=== PATIENT | male | born 1965 | race Caucasian/White ===

== ENCOUNTER 2018-07-14 08:09 | Day surgery (SDC) | payer OTHER ==
[2018-07-09 09:22] LABS: BASOPHILS % (AUTO) 1.3 % (0.0-2.0); EOSINOPHILS % (AUTO) 4.8 % (0.0-3.0); HEMATOCRIT 39.3 % (42.0-52.0); HEMOGLOBIN 12.6 G/DL (14.2-18.0); LYMPHOCYTES % (AUTO) 25.5 % (20.0-45.0); MEAN CORPUSCULAR VOLUME 84 FL (80-99); MONOCYTES % (AUTO) 8.8 % (1.0-10.0); NEUTROPHILS % (AUTO) 59.6 % (45.0-75.0); PLATELET COUNT 314 K/UL (150-450); RED BLOOD COUNT 4.65 M/UL (4.70-6.10); WHITE BLOOD COUNT 8.9 K/UL (4.8-10.8)
[2018-07-09 09:33] LABS: APPEARANCE,URINE CLEAR; BILIRUBIN, URINE NEGATIVE (NEGATIVE); COLOR,URINE PALE YELLOW; GLUCOSE, URINE (UA) NEGATIVE (NEGATIVE); KETONES,URINE NEGATIVE (NEGATIVE); LEUKOCYTE ESTERASE ,URINE NEGATIVE (NEGATIVE); NITRITE,URINE NEGATIVE (NEGATIVE); PH,URINE 6 (4.5-8.0); PROTEIN,URINE NEGATIVE (NEGATIVE); UROBILINOGEN,URINE NORMAL MG/DL (0.0-1.0)
[2018-07-09 11:01] LABS: ALANINE AMINOTRANSFERASE 21 U/L (12-78); ALBUMIN 3.6 G/DL (3.4-5.0); ALKALINE PHOSPHATASE 88 U/L (46-116); ANION GAP 10 mmol/L (5-15); ASPARTATE AMINO TRANSFERASE 17 U/L (15-37); BILIRUBIN,TOTAL 0.2 MG/DL (0.2-1.0); BLOOD UREA NITROGEN 27 mg/dL (7-18); CALCIUM 8.8 MG/DL (8.5-10.1); CARBON DIOXIDE 29 MMOL/L (21-32); CHLORIDE 101 MMOL/L (98-107); CHOLESTEROL 175 MG/DL (< 200); CREATININE 1.4 MG/DL (0.55-1.30); HDL CHOLESTEROL 44 MG/DL (40-60); PHOSPHORUS 3.8 MG/DL (2.5-4.9); POTASSIUM 3.9 MMOL/L (3.5-5.1); SODIUM 140 MMOL/L (136-145); TRIGLYCERIDES 131 MG/DL (30-150)
--- NOTE | 2018-07-09 11:08 | Diagnostic Imaging Report ---
Indication: Cough Technique: 2 views of the chest Comparison: 12/01/2013 Findings: Lungs and pleural spaces are clear. Heart size is normal. There is mild thoracic scoliotic deformity. No significant interim change Impression: No acute process
[2018-07-14] VITALS (13 sets, daily range): BP systolic 94–119; BP diastolic 51–81
[~2018-07-14] VITALS: Ht 190.5 cm; Wt 81.6 kg
[~2018-07-14 08:09] MED LIST: ADVIL200 M2 ORAL; ALPHA LIPOIC AC50 M1 PO; ASPIRIN-LOW81 MG ORAL; CRESTOR10 M1 ORAL; FISH OIL CAP1000 MG ORAL; GLIPIZIDE5 MG ORAL; JANUMET XR 50-1 EAC1 ORAL; MULTIVITAMINS1 EAC2 ORAL; RELIEF FACTOR PO; [UNRECOGNIZED DRUG - OTHER] PO
[2018-07-14] MEDS ORDERED: Ropivacaine 5mg/ml Vial 30ml INJ ONE ×2 (09:37→10:21)
[2018-07-14] MEDS ORDERED: Dexamethasone 4mg/ml vial ONE ×2 (09:37→10:12)
[2018-07-14] MEDS ORDERED: EPINEPHrine 1mg/1ml Amp ONE (09:37)
[2018-07-14] MEDS ORDERED: Hydrogen Peroxide 473ml Bottle TOPIC ONE (09:38)
[2018-07-14] MEDS ORDERED: Acetic Acid 3% Solution 15ml TOPIC ONE (09:45)
[2018-07-14] MEDS ORDERED: Sodium Chloride 10ml vial INJ ONE ×2 (10:12→10:34)
[2018-07-14] MEDS ORDERED: Lidocaine 1% MPF 10mg/ml 5ml ONE (10:12)
[2018-07-14] MEDS ORDERED: Propofol 200mg/20ml IV ONE (10:12)
[2018-07-14] MEDS ORDERED: Lidocaine 1% Plain 30 ml INJ ONE (10:13)
[2018-07-14] MEDS ORDERED: cefOXitin 1gm Inj ONE (10:19)
--- NOTE | 2018-07-14 10:42 | Pre-Procedure Note/Attestation ---
Pre-Procedure Note/Attestation Complete Prior to Procedure Planned Procedure: not applicable Procedure Narrative: Transanal excision of rectal lesion Indications for Procedure Pre-Operative Diagnosis: Rectal lesion Attestation I attest that I discussed the nature of the procedure; its benefits; risks and complications; and alternatives (and the risks and benefits of such alternatives ), prior to the procedure, with the patient (or the patient's legal dairy supplies sales representative). I attest that, if there was a reasonable possibility of needing a blood transfusion, the patient (or the patient's legal dairy supplies sales representative) was given the [facility] standardized written summary, pursuant to the Michael Gary Blood Safety Act ([place] [facility] and Safety Code # 1645, as amended). I attest that I re-evaluated the patient just prior to the surgery and that there has been no change in the patient's H&P, except as documented below: Rafia Snowden MD Jul 14, 2018 10:42
[2018-07-14] MEDS ORDERED: DiphenhydrAMINE 50mg/ml Inj IVP PRN (10:45)
[2018-07-14] MEDS ORDERED: LR 1000ml 1,000 ML IVLG SCH (10:45)
[2018-07-14] MEDS ORDERED: Metoclopramide 10mg/2ml Inj IVP PRN (10:45)
[2018-07-14] MEDS ORDERED: HYDROcodone/Acetamin 7.5/325 tab ORAL PRN (10:45)
[2018-07-14] MEDS ORDERED: Acetaminophen (Non formulary) 100 ML IV ONE (10:45)
[2018-07-14] MEDS ORDERED: Labetalol 5mg/ml 20ml vial IV PRN (10:45)
[2018-07-14] MEDS ORDERED: Ketorolac 30mg Inj IV PRN ×2 (10:45)
[2018-07-14] MEDS ORDERED: fentaNYL 100 mcg/2 mL IV PRN (10:45)
[2018-07-14] MEDS ORDERED: oxyCODONE HCL/Acetaminophen 5/325mg ORAL PRN (10:45)
[2018-07-14] MEDS ORDERED: LORazepam Inj 2mg/ml 1ml IV PRN (10:45)
[2018-07-14] MEDS ORDERED: Norco 5mg/325mg tab ORAL PRN (10:45)
[2018-07-14] MEDS ORDERED: Atropine Inj 1mg/10ml Syr IV PRN (10:45)
[2018-07-14] MEDS ORDERED: Midazolam 2mg/2ml Inj IVP PRN (10:45)
[2018-07-14] MEDS ORDERED: Hydromorphone 0.5mg/0.5ml inj IVP PRN (10:45)
--- NOTE | 2018-07-14 10:48 | Anethesia Preoperative Eval ---
Anesthesia Pre-op PMH/ROS General Date of Evaluation: Jul 14, 2018 Time of Evaluation: 10:46 Anesthesiologist: Shanelle ASA Score: ASA 3 Mallampati Score Class I : Soft palate, uvula, fauces, pillars visible Class II: Soft palate, uvula, fauces visible Class III: Soft palate, base of uvula visible Class IV: Only hard plate visible Mallampati Classification: Class I Surgeon: Sp Diagnosis: Rectal Mass Surgical Procedure: Transanal Rectal Lesion Excision Anesthesia History: none Family History: no anesthesia problems Allergies: Coded Allergies: NO KNOWN ALLERGIES (Unverified Allergy, 12/05/13) Medications: see eMAR Past Medical History Cardiovascular: Reports: other - HL Endocrine: Reports: DM HEENT: Reports: cataract (L), cataract (R) PSxH Narrative: Cat Sx IOL Bilateral Anesthesia Pre-op Phys. Exam Physician Exam Last Vital Signs Date Time Temp Pulse Resp B/P (MAP) Pulse Ox O2 Delivery O2 Flow Rate FiO2 07/14/18 08:55 98.0 65 20 119/81 (94) 99 98.0 07/14/18 08:46 Room Air Constitutional: NAD Neurologic: CN 2-12 intact Cardiovascular: RRR Respiratory: CTA Gastrointestinal: S/NT/ND Airway Exam Mallampati Score: Class I MO: full ROM: full Teeth: intact Anesthesia Pre-op A/P Risk Assessment & Plan Assessment: ASA 3 Plan: GA, BIS Status Change Before Surgery: No Pre-Antibiotics Dru Gram Cefoxitin IV Given Within 1 Hr of Incision: Yes Time Given: 10:58 Ayaz Timmons MD Jul 14, 2018 10:48
[2018-07-14] MEDS ORDERED: Propofol 1,000mg/ 100ml btl IV ONE (11:00)
[2018-07-14] MEDS ORDERED: NS Irrig 1000ml ONE (11:00)
[2018-07-14] MEDS ORDERED: Sterile Water Irrig 1000ml IRRIG ONE (11:00)
[2018-07-14] MEDS ORDERED: LR 1000ml ONE (11:00)
--- NOTE | 2018-07-14 11:26 | Immediate Post-Op Evaluation ---
Immediate Post-Op Evalulation Immediate Post-Op Evalulation Procedure: Transanal Rectal Lesion Excision Date of Evaluation: Jul 14, 2018 Time of Evaluation: 11:45 IV Fluids: 600 LR Blood Products: 0 Estimated Blood Loss: 8 Urinary Output: 0 Blood Pressure Systolic: 96 Blood Pressure Diastolic: 51 Pulse Rate: 63 Respiratory Rate: 16 O2 Sat by Pulse Oximetry: 100 Temperature (Fahrenheit): 98.8 Pain Score (1-10): 2 Nausea: No Vomiting: No Complications 0 Patient Status: awake, reacts, patent, none Hydration Status: adequate Dru Gram Cefoxitin IV Given Within 1 Hr of Incision: Yes Time Given: 10:58 Ayaz Timmons MD Jul 14, 2018 11:26
--- NOTE | 2018-07-14 11:27 | 48 Hour Post Anesthesia Eval ---
Post Anesthesia Evaluation Procedure: Transanal Rectal Lesion Excision Date of Evaluation: Jul 14, 2018 Time of Evaluation: 14:06 Blood Pressure Systolic: 118 0: 73 Pulse Rate: 67 Respiratory Rate: 18 Temperature (Fahrenheit): 98.8 O2 Sat by Pulse Oximetry: 100 Airway: patent Nausea: No Vomiting: No Pain Intensity: 2 Hydration Status: adequate Cardiopulmonary Status: Stable Mental Status/LOC: patient returned to baseline Follow-up Care/Observations: 0 Post-Anesthesia Complications: 0 Follow-up care needed: ready to discharge Ayaz Timmons MD Jul 14, 2018 11:27
--- NOTE | 2018-07-14 11:42 | Brief Operative Note ---
Immediate Post Operative Note Operative Note Pre-op Diagnosis: Rectal lesion Procedure: Transanal excision of rectal lesion, tatoo Post-op Diagnosis: same as pre-op Findings: consistent w/pre-op dx studies Surgeon: Rafia Snowden MD Anesthesiologist: Ayaz Timmons MD Anesthesia: moderate sedation Specimen: yes Complications: none Condition: stable Fluids: see anesthesia record Estimated Blood Loss: minimal Drains: none Implant(s) used?: No Rafia Snowden MD Jul 14, 2018 11:42
--- NOTE | 2018-07-14 21:58 | Operative Note - Dictated ---
DATE OF OPERATION: 07/14/2018 PREOPERATIVE DIAGNOSIS: Rectal lesion. POSTOPERATIVE DIAGNOSIS: Rectal lesion. PROCEDURE: Transanal excision of rectal lesion, tattoo. SURGEON: Rafia Kim M.D. ANESTHESIOLOGIST: Ayaz Timmons M.D. ANESTHESIA: Propofol sedation with local anesthetic. INDICATION FOR PROCEDURE: The patient is a 53-year-old male, who came to my office on 07/08/2018, complaining of hemorrhoids since 2016 with protrusion. The patient had a colonoscopy done at [facility] on 04/25/2016, which was negative for any polyps or masses per the patient. The patient had been complaining of hemorrhoids at that time. He reports he has been having blood with bowel movement and prolapse every day which he has to reduce. On physical exam, he was found to have a large firm lesion in the posterior midline extending to the left and to the right lateral region. There was a strong suspicion for carcinoma. It was determined at this time to proceed with diagnostic transanal excision of the rectal lesion or for stat pathology. DESCRIPTION OF PROCEDURE: Upon consent of the patient, the patient was brought to the operating room and placed in prone tiara-knife position on the operating table. Once adequate sedation was established with propofol drip, the patient's buttocks were prepped and draped in the usual surgical fashion. A 40 mL of 0.5% ropivacaine with epinephrine mixed with 6 mg of dexamethasone was used as perianal and pudendal block. A Hill-Pena retractor was placed into the anal canal and there was noted to be a friable mass approximately 4 cm in largest diameter cephalad extending from the right lateral rectum to the posterior midline and beginning at the dentate line above and involving the sphincter muscles. The mass was friable and ulcerated and large areas of it were so friable, they broke off with slight manipulation and were passed off the field as specimen. Much of the mass was excised and sent off for adequate specimen. It was not possible to completely excise the entire mass since it was invading through the mucosa into the muscle and the sphincteric muscle underneath. The area was then tattooed in the right lateral region and also the mass in the posterior midline. The anal canal was irrigated and hemostasis was confirmed. The bleeding areas were electrocauterized until hemostasis was confirmed. A sterile dry dressing . Sponge, needle, instrument counts were correct at the end of the case. The patient was awakened from anesthesia and brought to postanesthesia recovery in stable condition. ESTIMATED BLOOD LOSS: 5 mL. DRAINS: None. SPECIMEN: Rectal lesion. COMPLICATIONS: None. Rafia Snowden M.D. DR: Brent JOB#: [id number] CC: Frannie Cooper M.D.
== END 2018-07-14 14:05 | disposition home or self-care (01) ==
LOC: SUR 08:09
DX: C20 Malignant neoplasm of rectum (principal); E11.9 Type 2 diabetes mellitus without complications; Z79.84 Long term (current) use of oral hypoglycemic drugs; E78.00 Pure hypercholesterolemia, unspecified; E03.9 Hypothyroidism, unspecified; F17.200 Nicotine dependence, unspecified, uncomplicated; E78.5 Hyperlipidemia, unspecified
CPT/HCPCS: 36415; 45171; 71046; 80053; 80061; 81001; 82306; 82607; 82746; 82962; 83036; 83735; 84100; 84153; 84436; 84443; 85025; 85610; 85730; 87086; J0171; J0694; J1100; J2001; J2250; J2405; J2704; J2795; J7120; 94003; 94150